=== PATIENT | female | born 1980 | race Caucasian/White ===

== ENCOUNTER 2016-10-11 11:41 | Emergency (ER) | payer OTHER, BC ==
[2016-10-11 12:10] VITALS: BP 142/80
--- NOTE | 2016-10-11 12:30 | EDM.PDOC ---
ED HPI GENERAL MEDICAL PROBLEM - General Chief Complaint: Lower Extremity Injury/Pain Stated Complaint: LT KNEE PAIN Time Seen by Provider: 10/11/16 11:52 Source of Information: Reports: Patient History Limitations: Reports: No Limitations - History of Present Illness INITIAL COMMENTS - FREE TEXT/NARRATIVE: The patient presents with left knee pain. She said this all started back in February. She was caught her foot on a door frame and twister her knee. For the past week she had more pain and she had clicking and it felt like her knee went out a few days ago and last night. She did not have a recent injury. She went to the walk in clinic and she was advised to get a brace. She ordered 2 on the internet. Onset: Gradual Duration: Week(s): Location: Reports: Lower Extremity, Left Quality: Reports: Sharp Severity: Mild Improves with: Reports: None Worsens with: Reports: Movement Associated Symptoms: Reports: No Other Symptoms Left Knee Pain Score (Numeric/FACES): 1 - Related Data Allergies Allergy/AdvReac Type Severity Reaction Status Date / Time No Known Allergies Allergy Verified 10/11/16 11:50 Home Meds: Home Meds Levothyroxine Sodium [Levothyroxine Sodium] 75 mcg PO DAILY 12/14/14 [History] Multivitamin [Multivitamins] 1 tab PO DAILY 10/11/16 [History] Omeprazole Magnesium [Prilosec Otc] 20 mg PO DAILY 10/11/16 [History] Past Medical History - Past Health History Medical/Surgical History: Denies Medical/Surgical History Endocrine/Metabolic History: Reports: Hypothyroidism - Past Surgical History GI Surgical History: Reports: Bariatric Procedure Endocrine Surgical History: Reports: Thyroidectomy Other Endocrine Surgeries/Procedures: partial thyroidectomy Social & Family History - Tobacco Use Smoking Status *Q: Never Smoker Second Hand Smoke Exposure: No - Caffeine Use Caffeine Use: Reports: None - Recreational Drug Use Recreational Drug Use: No Review of Systems - Review of Systems Review Of Systems: See Below Constitutional: Reports: No Symptoms Eyes: Reports: No Symptoms Ears: Reports: No Symptoms Nose: Reports: No Symptoms Mouth/Throat: Reports: No Symptoms Respiratory: Reports: No Symptoms Cardiovascular: Reports: No Symptoms GI/Abdominal: Reports: No Symptoms Genitourinary: Reports: No Symptoms Musculoskeletal: Reports: Other (Left knee pain) ED EXAM, GENERAL - Physical Exam Exam: See Below Exam Limited By: No Limitations General Appearance: Alert, No Apparent Distress Ears: Normal External Exam Nose: Normal Inspection Head: Atraumatic, Normocephalic Neck: Normal Inspection Respiratory/Chest: No Respiratory Distress Extremities: Other (Pain upon palpation to the left medial knee. Good sensation and pulses distally. No ligament or tendon laxity on exam.) Course - Vital Signs Last Recorded V/S: Last Vital Signs Temp 96.6 F 10/11/16 11:45 Pulse 63 10/11/16 11:45 Resp 18 10/11/16 11:45 BP 142/80 H 10/11/16 11:45 Pulse Ox 99 10/11/16 11:45 - Orders/Labs/Meds Orders: Active Orders 24 hr Category Date Time Status Knee Min 4V Lt [CR] Stat Exams 10/11/16 12:00 Taken - Re-Assessments/Exams Free Text/Narrative Re-Assessment/Exam: 10/11/16 12:36 Her Knee x-ray looks good. She has a knee brace. I will have her wear that. She is scheduled to see Dr Camilo on the . I have ordered an MRI of her knee for next Friday. Departure - Departure Time of Disposition: 12:45 Disposition: Home, Self-Care 01 Condition: Good Clinical Impression: Left knee sprain Qualifiers: Encounter type: initial encounter Involved ligament of knee: unspecified ligament Qualified Code(s): S83.92XA - Sprain of unspecified site of left knee, initial encounter - Discharge Information Referrals: Ryan Camilo DO [Physician] - (As scheduled) Forms: ED Department Discharge Additional Instructions: Take tylenol for pain. Ice your knee for 15 minutes every other hour while awake for 2 days. Try to elevate your knee above your heart as much as you can for 2 days. I have scheduled an MRI of your knee for Friday the 18 of October at 9am. Please come 1/2 hour early to register. Follow up with Dr Camilo as scheduled. - My Orders Last 24 Hours: My Active Orders 10/11/16 12:00 Knee Min 4V Lt [CR] Stat - Assessment/Plan Last 24 Hours: My Active Orders 10/11/16 12:00 Knee Min 4V Lt [CR] Stat
--- NOTE | 2016-10-11 13:37 | CR ---
Left knee: Four views of the left knee were obtained. Comparison: No previous study. Mild medial joint space narrowing is seen. Lateral joint space is preserved. No joint effusion is seen. No fracture or other bony abnormality is seen. Impression: 1. Mild medial joint space narrowing. 2. No additional abnormality is appreciated on left knee exam. Diagnostic code #2
== END 2016-10-11 12:50 | disposition home or self-care (01) ==
LOC: JD.ED 11:41
DX: S83.92XA Sprain of unspecified site of left knee, initial encounter (principal); E03.9 Hypothyroidism, unspecified; Z90.89 Acquired absence of other organs; Z79.899 Other long term (current) drug therapy; W23.0XXA Caught, crushed, jammed, or pinched between moving objects, initial encounter
CPT/HCPCS: 73564-26-LT; 73564-LT; 99282; 99283

== ENCOUNTER 2025-01-29 13:54 | Emergency (ER) | payer BC ==
[2025-01-29 14:22] VITALS: BP 132/70; PULSE 84
== END 2025-01-29 14:28 ==
LOC: JD.ED 13:54
DX: Z53.21 Procedure and treatment not carried out due to patient leaving prior to being seen by health care provider (principal)